=== PATIENT | male | born 1950 | race Asian ===

== ENCOUNTER 2016-06-09 14:22 | Outpatient (CLI) | payer MEDICAID | END 2016-06-09 14:23 | disposition home or self-care (01) | DX: J44.9 Chronic obstructive pulmonary disease, unspecified (principal); J84.10 Pulmonary fibrosis, unspecified ==

== ENCOUNTER 2019-07-16 19:29 | Outpatient (CLI) | payer MEDICARE, OTHER | END 2019-07-16 19:30 | disposition critical access hospital (66) | LOC: EMS 19:29 | PROVIDERS: ATTEND Surgery | DX: R41.82 Altered mental status, unspecified (principal); R06.89 Other abnormalities of breathing | CPT/HCPCS: A0425; A0427 ==

== ENCOUNTER 2019-07-16 19:51 | Emergency (ER) | payer MEDICAID, MEDICARE, OTHER ==
--- NOTE | 2019-07-16 20:19 | ED Physician Documentation ---
History of Present Illness - Stated complaint Stated Complaint: OD - Chief complaint Chief Complaint: Neuro - History obtained from History obtained from: Patient, EMS - History of Present Illness Timing: Today Pain level max: 0 Pain level now: 0 - Additonal information Additional information: 68-year-old male was found unresponsive today. He was given Narcan 2 mg IV, awoke and then given another 2 mg IV 20 minutes later. He states that he bought OxyContin off the street, states it was a 30 mg pill and he took one third of it. He states he was not trying to kill himself. He states he used marijuana today as well. Denies any other drug use. Denies any medications at home. Nothing makes it better or worse. Review of Systems Ten Systems: 10 systems reviewed and negative Constitutional: denies: Fever, Chills Throat: denies: Sore throat Respiratory: denies: Cough GI: denies: Nausea, Vomiting, Diarrhea Skin: denies: Rash Musculoskeletal: denies: Neck pain, Back pain Neurologic: denies: Generalized weakness, Focal weakness, Numbness, Confused, Altered mental status, Headache PD PAST MEDICAL HISTORY - Past Medical History Past Medical History: No - Past Surgical History Past Surgical History: No - Present Medications Home Medications: Ambulatory Orders Medication Instructions Recorded Confirmed No Known Home Medications 07/16/19 07/16/19 - Allergies Allergies/Adverse Reactions: Allergies Allergy/AdvReac Type Severity Reaction Status Date / Time No Known Drug Allergies Allergy Verified 07/16/19 20:00 - Living Situation Living Arrangement: reports: At home - Social History Does the pt smoke?: Yes Does the pt drink ETOH?: Yes Does the pt have substance abuse?: Yes Substance Use and Type: Marijuana, Prescription Pills - Family History Family history: reports: Non contributory PD ED PE NORMAL - Vitals Vital signs reviewed: Yes - General General: Alert and oriented X 3, No acute distress, Other (Thin male, appears significantly older than stated age.) - HEENT HEENT: Atraumatic, PERRL, Pharynx benign, Other (Dry lips) - Neck Neck: Supple, no meningeal sign - Cardiac Cardiac: RRR - Respiratory Respiratory: No respiratory distress, Clear bilaterally - Abdomen Abdomen: Soft, Non tender, Non distended - Derm Derm: Warm and dry - Extremities Extremities: No edema, No calf tenderness / cord - Neuro Neuro: Alert and oriented X 3 Results - Vitals Vitals: Vital Signs - 24 hr 07/16/19 07/16/19 07/16/19 19:53 20:00 21:30 Temperature 36.5 C Heart Rate 89 78 93 Respiratory 26 H 23 20 Rate Blood Pressure 172/105 H 107/72 130/94 H O2 Saturation 90 L 91 L 91 L Oxygen O2 Source Room air - EKG (time done) 2006 Rate: Rate (enter#) (74) Rhythm: NSR [place]: Normal Intervals: Normal MI QRS: Normal Ischemia: Normal ST segments - Labs Labs: Laboratory Tests 07/16/19 07/16/19 07/16/19 20:20 20:20 20:43 WBC 15.6 H RBC 4.71 Hgb 15.6 Hct 46.5 MCV 98.7 H MCH 33.1 H MCHC 33.5 RDW 13.1 Plt Count 159 MPV 10.0 Neut # (Auto) 13.2 H Lymph # (Auto) 1.[address] [place] # (Auto) 0.8 Eos # (Auto) 0.2 Baso # (Auto) 0.2 H Absolute Nucleated RBC 0.00 Nucleated RBC % 0.0 Sodium 137 Potassium 3.7 Chloride 107 Carbon Dioxide 21 Anion Gap 9.0 BUN 10 Creatinine 0.9 Estimated GFR (MDRD) 84 L Glucose 200 H Calcium 8.5 Total Bilirubin 0.8 AST 29 ALT 20 Alkaline Phosphatase 80 Total Protein 6.9 Albumin 3.6 Globulin 3.3 Albumin/Globulin Ratio 1.1 Lipase 20 L Urine Color YELLOW Urine Clarity CLEAR Urine pH 6.5 Ur Specific [place] 1.020 Urine Protein TRACE Urine Glucose (UA) NEGATIVE Urine Ketones NEGATIVE Urine Occult Blood TRACE-INTA Urine Nitrite NEGATIVE Urine Bilirubin NEGATIVE Urine Urobilinogen 0.2 (NORMAL) Ur Leukocyte Esterase NEGATIVE Ur Microscopic Review NOT INDICATED Urine Culture Comments NOT INDICATED Salicylates < 6.0 Urine Opiates Screen NEGATIVE Ur Oxycodone Screen NEGATIVE Urine Methadone Screen NEGATIVE Ur Propoxyphene Screen NEGATIVE Acetaminophen < 10 L Ur Barbiturates Screen NEGATIVE Ur Tricyclics Screen NEGATIVE Ur Phencyclidine Scrn NEGATIVE Ur Amphetamine Screen NEGATIVE U Methamphetamines Scrn NEGATIVE U Benzodiazepines Scrn NEGATIVE Urine Cocaine Screen NEGATIVE U Cannabinoids Screen POSITIVE H Ethyl Alcohol < 5.0 PD MEDICAL DECISION MAKING - ED course Complexity details: considered differential, d/w patient ED course: Patient with an accidental opiate overdose today. Likely that he purchased a pill containing fentanyl. He had no further recurrences of somnolence or respiratory difficulty in the emergency department. He denies being suicidal or homicidal. Does not want to go to drug rehab. Patient counseled regarding signs and symptoms for which I believe and urgent re-evaluation would be necessary. Patient with good understanding of and agreement to plan and is comfortable going home at this time This document was made in part using voice recognition software. While efforts are made to proofread this document, sound alike and grammatical errors may occur. Departure - Departure Disposition: 01 Home, Self Care Clinical Impression: Opiate overdose Qualifiers: Encounter type: initial encounter Injury intent: accidental or unintentional Qualified Code(s): T40.601A - Poisoning by unspecified narcotics, accidental (unintentional), initial encounter COPD (chronic obstructive pulmonary disease) Qualifiers: COPD type: unspecified COPD Qualified Code(s): J44.9 - Chronic obstructive pulmonary disease, unspecified Condition: Good Instructions: ED Overdose Accidental Follow-Up: your,doctor in 1 week [Other] Comments: Return if you worsen. You should refrain from buying drugs on the street and taking them. The drug that you took was likely fentanyl. It took 2 doses of naloxone to revive you. You should also consider going to drug rehab. Crisis Line and is available to talk to someone Http://[email or web address] is also available to chat with someone online if you prefer. There are also many resources on this website and apps for your phone to help with your mental health You can also text the word START to [phone] to chat with someome via text. Discharge Date/Time: 07/16/19 21:58
[2019-07-16 20:24] LABS: BASOPHILS # (AUTO) 0.2 10^3/uL (0.0-0.1); BASOPHILS % (AUTO) 1.1 %; EOSINOPHILS # (AUTO) 0.2 10^3/uL (0.0-0.7); HGB - HEMOGLOBIN 15.6 g/dL (14.0-18.0); LYMPHOCYTES # (AUTO) 1.1 10^3/uL (1.5-3.5); LYMPHOCYTES % (AUTO) 7.2 %; MEAN CORPUSCULAR HEMOGLOBIN 33.1 pg (27.0-31.0); MEAN CORPUSCULAR HGB CONC 33.5 g/dL (32.0-36.0); MEAN CORPUSCULAR VOLUME 98.7 fL (80.0-94.0); MONOCYTES # (AUTO) 0.8 10^3/uL (0.0-1.0); MONOCYTES % (AUTO) 5.2 %; NEUTROPHILS # (AUTO) 13.2 10^3/uL (1.5-6.6); NEUTROPHILS % (AUTO) 84.7 %; PLT - PLATELET COUNT 159 10^3/uL (130-450); RED BLOOD COUNT 4.71 10^6/uL (4.70-6.10); RED CELL DISTRIBUTION WIDTH 13.1 % (12.0-15.0); WHITE BLOOD COUNT 15.6 x10^3/uL (4.8-10.8)
[2019-07-16 20:37] LABS: ACETAMINOPHEN < 10 ug/mL (10-30); ALBUMIN 3.6 g/dL (3.2-5.5); ALBUMIN/GLOBULIN RATIO 1.1 (1.0-2.2); ALKALINE PHOSPHATASE 80 IU/L (42-121); ALT ALANINE AMINOTRANSFERASE 20 IU/L (10-60); AST ASPARTATE AMINOTRANSFERASE 29 IU/L (10-42); BILIRUBIN,TOTAL 0.8 mg/dL (0.2-1.0); BUN - BLOOD UREA NITROGEN 10 mg/dL (6-20); CALCIUM 8.5 mg/dL (8.5-10.3); CARBON DIOXIDE - CO2 21 mmol/L (21-32); CHLORIDE 107 mmol/L (101-111); CREATININE 0.9 mg/dL (0.6-1.2); GLUCOSE 200 mg/dL (70-100); LIPASE 20 U/L (22-51); SALICYLATE < 6.0 mg/dL; SODIUM 137 mmol/L (135-145); TOTAL PROTEIN 6.9 g/dL (6.7-8.2)
[2019-07-16 20:48] LABS: MUDS CUTOFF CONCENTRATIONS CUTOFF CONC BELOW:
[2019-07-16 20:49] LABS: BILIRUBIN,URINE NEGATIVE (NEGATIVE); GLUCOSE, URINE (UA) NEGATIVE (NEGATIVE); KETONES,URINE (UA) NEGATIVE (NEGATIVE); LEUKOCYTE ESTERASE, URINE NEGATIVE (NEGATIVE); NITRITE,URINE NEGATIVE (NEGATIVE); OCCULT BLOOD,URINE TRACE-INTA (NEGATIVE); PH,URINE 6.5 PH (5.0-7.5); PROTEIN,URINE TRACE mg/dL (NEGATIVE); UROBILINOGEN,URINE 0.2 (NORMAL) E.U./dL (NORMAL)
[2019-07-16 20:50] LABS: CLARITY,URINE CLEAR (CLEAR)
[2019-07-16 21:01] LABS: AMPHETAMINE SCREEN,URINE NEGATIVE (NEGATIVE); BENZODIAZEPINES SCREEN, URINE NEGATIVE (NEGATIVE); COCAINE SCREEN URINE NEGATIVE (NEGATIVE); METHADONE SCREEN, URINE NEGATIVE (NEGATIVE); METHAMPHETAMINES SCREEN, URINE NEGATIVE (NEGATIVE); OPIATE SCREEN, URINE NEGATIVE (NEGATIVE); OXYCODONE SCREEN, URINE NEGATIVE (NEGATIVE); PROPOXYPHENE SCREEN, URINE NEGATIVE (NEGATIVE); TRICYCLIC ANTIDEPRESSANT,URINE NEGATIVE (NEGATIVE)
[2019-07-16 21:41] VITALS: BP 130/94
== END 2019-07-16 21:58 | disposition home or self-care (01) ==
LOC: ED 19:51
DX: T40.601A Poisoning by unspecified narcotics, accidental (unintentional), initial encounter (principal); R40.20 Unspecified coma; Y92.9 Unspecified place or not applicable; J44.9 Chronic obstructive pulmonary disease, unspecified; F17.200 Nicotine dependence, unspecified, uncomplicated; Z72.89 Other problems related to lifestyle
CPT/HCPCS: 36415; 80053; 80306; 80307; 80320; 80329; 81001; 81003; 83690; 85025; 87086; 93005; 99283; 99284

== ENCOUNTER 2019-12-05 10:00 | Outpatient (CLI) | payer MEDICARE | END 2019-12-05 10:01 | disposition critical access hospital (66) | LOC: EMS 10:00 | PROVIDERS: ATTEND Surgery | DX: R41.82 Altered mental status, unspecified (principal); R47.81 Slurred speech | CPT/HCPCS: A0425; A0427 ==

== ENCOUNTER 2019-12-05 10:19 | Emergency (ER) | payer MEDICARE ==
--- NOTE | 2019-12-05 10:34 | ED Physician Documentation ---
PD HPI ALTERED MENTAL STATUS - Stated complaint Stated Complaint: OD - History obtained from History obtained from: Patient, Family, EMS (Report from EMS is the patient had an onset of diminished level of consciousness this morning. His told EMS she believes he had gotten some illicit narcotics and took them. He had had a similar episode several months ago. They found him with diminished alertness.) - History of Present Illness Timing - onset: Today Timing - duration: Hours (1) Timing - details: Abrupt onset Quality / character: Less responsive Associated symptoms: No: Fever, Headache Contributing factors: Substance abuse (reportedly had taken some illicit opiate.). No: Anticoagulated Basline status: Alert and oriented X 3, Ambulatory Treatment S[employer]IOR WE[employer] ENG[employer]ER: Accucheck, Narcan (He did become more promptly awake and alert after Narcan given IV. However he also started developing some nausea agitation and fidgeting.) Similar symptoms before: Diagnosis (ER records show a similar episode several months ago related to illicit narcotics as well.) Recently seen: Not recently seen Review of Systems Unable to obtain: AMS (some info from him once more alert and calmed.) Constitutional: denies: Fever Cardiac: denies: Chest pain / pressure Respiratory: denies: Cough GI: denies: Abdominal Pain, Vomiting, Diarrhea Neurologic: reports: Generalized weakness Endocrine: reports: Weight loss PD PAST MEDICAL HISTORY - Past Medical History Cardiovascular: None Respiratory: None Endocrine/Autoimmune: None - Past Surgical History Past Surgical History: No - Present Medications Home Medications: Ambulatory Orders Medication Instructions Recorded Confirmed No Known Home Medications 07/16/19 07/16/19 - Allergies Allergies/Adverse Reactions: Allergies Allergy/AdvReac Type Severity Reaction Status Date / Time No Known Drug Allergies Allergy Verified 12/05/19 10:36 - Living Situation Living Situation: reports: With spouse/s.o. Living Arrangement: reports: At home - Social History Does the pt smoke?: Yes Does the pt drink ETOH?: Yes Does the pt have substance abuse?: Yes - Family History Family history: reports: Non contributory PD ED PE NORMAL - Vitals Vital signs reviewed: Yes - General General: Alert and oriented X 3. No: Well developed/nourished (He is thin and frail-appearing. Unkempt mao and hair.) - HEENT HEENT: Pharynx benign - Neck Neck: Supple, no meningeal sign, No adenopathy - Cardiac Cardiac: RRR, No murmur - Respiratory Respiratory: Clear bilaterally - Abdomen Abdomen: Soft, Non tender - Back Back: No CVA TTP - Derm Derm: Normal color, Warm and dry, Other (right gluteal with redness and mild skin breakdown, decubitus level 2. ) - Neuro Neuro: Alert and oriented X 3 (Somewhat hard of hearing but is able to tell us his name month and date of . He is generally fidgety and appears nauseated. Medics state this was new after getting the Narcan but he is more alert.), No motor deficit, Normal speech Eye Opening: Spontaneous Motor: Obeys Commands - Psych Psych: No: Normal mood (anxious) Results - Vitals Vitals: Vital Signs - 24 hr 12/05/19 12/05/19 12/05/19 10:27 10:36 13:03 Temperature 36.5 C Heart Rate 101 H 86 88 Respiratory 30 H 16 21 Rate Blood Pressure 174/107 H 115/86 H 131/92 H O2 Saturation 98 96 95 12/05/19 15:25 Temperature Heart Rate 90 Respiratory Rate Blood Pressure 151/89 H O2 Saturation 93 Oxygen O2 Source Room air - Labs Labs: Laboratory Tests 12/05/19 12/05/19 12/05/19 10:54 10:54 11:40 WBC 24.0 H RBC 4.99 Hgb 16.5 Hct 46.7 MCV 93.6 MCH 33.1 H MCHC 35.3 RDW 13.0 Plt Count 244 MPV 9.6 Neut # (Auto) 20.0 H Lymph # (Auto) 2.1 [place] # (Auto) 1.5 H Eos # (Auto) 0.0 Baso # (Auto) 0.1 Absolute Nucleated RBC 0.00 Nucleated RBC % 0.0 Manual Slide Review Indicated WBC Morphology Platelet Estimate NORMAL (130-450,000) Platelet Morphology NORMAL APPEARANCE RBC Morph Micro Appear NORMAL APPEARANCE Sodium 131 L Potassium 3.7 Chloride 92 L Carbon Dioxide 21 Anion Gap 18.0 H BUN 16 Creatinine 0.9 Estimated GFR (MDRD) 84 L Glucose 141 H Calcium 9.2 Magnesium 1.8 Total Bilirubin 1.1 H AST 24 ALT 13 Alkaline Phosphatase 92 Total Protein 7.5 Albumin 3.6 Globulin 3.9 Albumin/Globulin Ratio 0.9 L Lipase 17 L Urine Color YELLOW Urine Clarity CLEAR Urine pH 7.0 Ur Specific [place] 1.010 Urine Protein NEGATIVE Urine Glucose (UA) NEGATIVE Urine Ketones NEGATIVE Urine Occult Blood NEGATIVE Urine Nitrite NEGATIVE Urine Bilirubin NEGATIVE Urine Urobilinogen 0.2 (NORMAL) Ur Leukocyte Esterase NEGATIVE Ur Microscopic Review NOT INDICATED Urine Culture Comments NOT INDICATED Salicylates < 6.0 Urine Opiates Screen NEGATIVE Ur Oxycodone Screen NEGATIVE Urine Methadone Screen NEGATIVE Ur Propoxyphene Screen NEGATIVE Acetaminophen < 10 L Ur Barbiturates Screen NEGATIVE Ur Tricyclics Screen NEGATIVE Ur Phencyclidine Scrn NEGATIVE Ur Amphetamine Screen NEGATIVE U Methamphetamines Scrn NEGATIVE U Benzodiazepines Scrn NEGATIVE Urine Cocaine Screen NEGATIVE U Cannabinoids Screen POSITIVE H Ethyl Alcohol < 5.0 - Rads (name of study) chest xray Radiology: Prelim report reviewed (Chronic lung changes with hyperinflation. No acute infiltrates or abnormalities), See rad report PD MEDICAL DECISION MAKING - ED course Complexity details: re-evaluated patient (He is calmer and laying comfortably. Eye opening to verbal. He is oriented and is not anxious at this time. He has been in the ER now 2 to 3 hours without any worsening of alertness which should have out lasted the Narcan. I do not anticipate a worsening of mentation at this point), considered differential (He is more alert after Narcan on route consistent with the history of likely illicit opiate use. He is having withdrawal-kierra type symptoms so given Ativan IV.), d/w patient ED course: He was having a little bit of gait problems and general weakness when trying to get up out of bed though he was able to ambulate in the room. Nurses were worried about his general frailty and self-care. There was a mild pressure sore on the low gluteal area. Request was for social work to consult and see what type of home assistance we can provide. Departure - Departure Clinical Impression: Generalized weakness, Frailty Altered mental status Qualifiers: Altered mental status type: somnolence Qualified Code(s): R40.0 - Somnolence Opiate or related narcotic overdose Qualifiers: Encounter type: initial encounter Injury intent: accidental or unintentional Qualified Code(s): T40.601A - Poisoning by unspecified narcotics, accidental (unintentional), initial encounter Condition: Stable Record reviewed to determine appropriate education?: Yes Instructions: ED Overdose Accidental Comments: It seems your altered mentation was related to medication or drug effect presumably. He seemed more alert now. Avoid recreational drug use. Stay well- hydrated. Eat well.
[2019-12-05] MEDS ORDERED: LORazepam 2 MG/ML VIAL IVP STA (10:35)
[2019-12-05] MEDS ORDERED: SODIUM CHLORIDE 0.9% 1,000 ML IV STA ×2 (10:35→14:42)
--- NOTE | 2019-12-05 10:56 | XRAY Report ---
PROCEDURE: Chest 1 View X-Ray INDICATIONS: chest pain TECHNIQUE: One view of the chest was acquired. COMPARISON: FINDINGS: Surgical changes and devices: None. Lungs and pleura: No pleural effusions or pneumothorax. Lungs are abnormal with large lung volumes and flattening of the diaphragms, and interstitial prominence. The appearance is consistent with COPD and probable prior smoking history. Mediastinum: Mediastinal contours appear normal. Heart size is normal. Bones and chest wall: No suspicious bony lesions. Old left-sided posterior left rib fractures incide ntally noted. Overlying soft tissues appear unremarkable. IMPRESSION: A definite source of chest pain is not seen. What appears to represent COPD, interstitial prominence and presumed prior smoking history is present in this patient. Old left-sided mid chest rib fractures posteriorly incidentally noted. Reviewed by: Blake Ray MD on 12/05/2019 10:55 AM PDT Approved by: Blake Ray MD on 12/05/2019 10:55 AM PDT Station ID: [id number]
[2019-12-05 11:00] LABS: BASOPHILS # (AUTO) 0.1 10^3/uL (0.0-0.1); BASOPHILS % (AUTO) 0.4 %; HGB - HEMOGLOBIN 16.5 g/dL (14.0-18.0); LYMPHOCYTES # (AUTO) 2.1 10^3/uL (1.5-3.5); LYMPHOCYTES % (AUTO) 8.7 %; MEAN CORPUSCULAR HEMOGLOBIN 33.1 pg (27.0-31.0); MEAN CORPUSCULAR HGB CONC 35.3 g/dL (32.0-36.0); MEAN CORPUSCULAR VOLUME 93.6 fL (80.0-94.0); MEAN PLATELET VOLUME 9.6 fL (7.4-11.4); MONOCYTES # (AUTO) 1.5 10^3/uL (0.0-1.0); MONOCYTES % (AUTO) 6.4 %; NEUTROPHILS % (AUTO) 83.4 %; PLT - PLATELET COUNT 244 10^3/uL (130-450); RED BLOOD COUNT 4.99 10^6/uL (4.70-6.10)
[2019-12-05 11:14] LABS: ACETAMINOPHEN < 10 ug/mL (10-30); ALBUMIN 3.6 g/dL (3.2-5.5); ALBUMIN/GLOBULIN RATIO 0.9 (1.0-2.2); ALKALINE PHOSPHATASE 92 IU/L (42-121); ALT ALANINE AMINOTRANSFERASE 13 IU/L (10-60); AST ASPARTATE AMINOTRANSFERASE 24 IU/L (10-42); BILIRUBIN,TOTAL 1.1 mg/dL (0.2-1.0); BUN - BLOOD UREA NITROGEN 16 mg/dL (6-20); CALCIUM 9.2 mg/dL (8.5-10.3); CARBON DIOXIDE - CO2 21 mmol/L (21-32); CHLORIDE 92 mmol/L (101-111); CREATININE 0.9 mg/dL (0.6-1.2); GLUCOSE 141 mg/dL (70-100); LIPASE 17 U/L (22-51); MAGNESIUM 1.8 mg/dL (1.7-2.8); SALICYLATE < 6.0 mg/dL; SODIUM 131 mmol/L (135-145); TOTAL PROTEIN 7.5 g/dL (6.7-8.2)
[2019-12-05 11:39] LABS: PLATELET ESTIMATE, MANUAL NORMAL (130-450,000) (NORMAL); PLATELET MORPHOLOGY NORMAL APPEARANCE (NORMAL); RBC MORPHOLOGY (MULTIPLE) NORMAL APPEARANCE (NORMAL)
[2019-12-05 11:59] LABS: MUDS CUTOFF CONCENTRATIONS CUTOFF CONC BELOW:
[2019-12-05 12:02] LABS: BILIRUBIN,URINE NEGATIVE (NEGATIVE); GLUCOSE, URINE (UA) NEGATIVE (NEGATIVE); KETONES,URINE (UA) NEGATIVE (NEGATIVE); LEUKOCYTE ESTERASE, URINE NEGATIVE (NEGATIVE); NITRITE,URINE NEGATIVE (NEGATIVE); OCCULT BLOOD,URINE NEGATIVE (NEGATIVE); PROTEIN,URINE NEGATIVE (NEGATIVE); UROBILINOGEN,URINE 0.2 (NORMAL) E.U./dL (NORMAL)
[2019-12-05 12:03] LABS: CLARITY,URINE CLEAR (CLEAR)
[2019-12-05 12:11] LABS: AMPHETAMINE SCREEN,URINE NEGATIVE (NEGATIVE); BENZODIAZEPINES SCREEN, URINE NEGATIVE (NEGATIVE); COCAINE SCREEN URINE NEGATIVE (NEGATIVE); METHADONE SCREEN, URINE NEGATIVE (NEGATIVE); METHAMPHETAMINES SCREEN, URINE NEGATIVE (NEGATIVE); OPIATE SCREEN, URINE NEGATIVE (NEGATIVE); OXYCODONE SCREEN, URINE NEGATIVE (NEGATIVE); PROPOXYPHENE SCREEN, URINE NEGATIVE (NEGATIVE); TRICYCLIC ANTIDEPRESSANT,URINE NEGATIVE (NEGATIVE)
[2019-12-05 19:38] VITALS: BP 150/87
== END 2019-12-05 21:05 | disposition home or self-care (01) ==
LOC: EDUNIT# → ED 10:19
DX: T40.2X1A Poisoning by other opioids, accidental (unintentional), initial encounter (principal); R40.0 Somnolence; F11.10 Opioid abuse, uncomplicated; Y92.009 Unspecified place in unspecified non-institutional (private) residence as the place of occurrence of the external cause; L89.312 Pressure ulcer of right buttock, stage 2; R53.1 Weakness; R11.0 Nausea
CPT/HCPCS: 36415; 71045; 80053; 81003; 83690; 83735; 85025; 96361; 96374; 99284; J2060; 80306; 80307; 80320; 80329; 81001; 87086

== ENCOUNTER 2019-12-09 20:16 | Outpatient (CLI) | payer MEDICARE | END 2019-12-09 20:17 | disposition critical access hospital (66) | LOC: EMS 20:16 | PROVIDERS: ATTEND Surgery | DX: R47.81 Slurred speech (principal); R53.1 Weakness; R29.810 Facial weakness | CPT/HCPCS: A0425; A0427 ==

== ENCOUNTER 2019-12-09 20:36 | Emergency (ER) | payer MEDICARE ==
--- NOTE | 2019-12-09 20:40 | ED Physician Documentation ---
PD HPI FOCAL NEURO - Stated complaint Stated Complaint: LEFT SIDE WEAKNESS, NON VERBAL - History obtained from History obtained from: Patient, Family, EMS - History of Present Illness Timing - onset: Today (at 6:30 pm (significant other had been with him through the afternoon, so not any period of not being seen). does say he had some general weakness and slumped while walking this morning but did not have the focal weakness at that time.) Timing - duration: Hours (2) Timing - details: Abrupt onset (The current one-sided weakness and trouble speaking is abrupt this evening. He has been having some general weakness and perhaps slight confusion earlier in the day.) Severity of deficit: Severe Weakness: Face, Arm, Leg, Left Associated symptoms: No: Headache, Nausea / vomiting, Syncope, Head injury Contributing factors: negative: Anticoagulated, Vascular dz, Atrial fibrillation Baseline status: positive: A&OX3, ambulatory, indep Similar symptoms before: Has not had sx before Recently seen: Emergency Dept (Seen 4 days ago for decreased alertness after reportedly taking nonprescribed opiate. He was given Narcan by EMS and improved and remained alert in the ER. He did not have any focal deficits no trouble speaking on that visit (actually seen by me on that visit).) Review of Systems Constitutional: denies: Fever Nose: denies: Congestion Throat: denies: Sore throat Cardiac: denies: Chest pain / pressure Respiratory: denies: Cough GI: denies: Abdominal Pain, Vomiting Skin: denies: Rash Neurologic: reports: Focal weakness. denies: Headache, Head injury Immunocompromised: denies: Immunocompromised PD PAST MEDICAL HISTORY - Past Medical History Cardiovascular: None Respiratory: None Endocrine/Autoimmune: None - Past Surgical History Past Surgical History: No - Present Medications Home Medications: Ambulatory Orders Medication Instructions Recorded Confirmed No Known Home Medications 07/16/19 07/16/19 - Allergies Allergies/Adverse Reactions: Allergies Allergy/AdvReac Type Severity Reaction Status Date / Time No Known Drug Allergies Allergy Verified 12/05/19 10:36 - Social History Does the pt smoke?: Yes Does the pt drink ETOH?: Yes Does the pt have substance abuse?: Yes PD ED PE NORMAL - Vitals Vital signs reviewed: Yes - General General: Well developed/nourished, Other (He is appearing anxious and frustrated at his weakness. He is able to answer questions though the articulation is off. We have not attempted to have him swallow) - HEENT HEENT: Pharynx benign - Neck Neck: Supple, no meningeal sign, No adenopathy, No bruit - Cardiac Cardiac: RRR, Other (1/6 murmur systolic at left chest without radiation. ) - Respiratory Respiratory: Clear bilaterally - Abdomen Abdomen: Soft, Non tender, Non distended - Derm Derm: Normal color, Warm and dry - Extremities Extremities: No tenderness to palpate, No edema, No calf tenderness / cord - Neuro Neuro: Alert and oriented X 3. No: Normal speech Eye Opening: Spontaneous Motor: Obeys Commands Verbal: Oriented GCS Score: 15 NIHSS - Level of Consciousness Level of consciousness: (0) Alert, Keenly responsive LOC Questions: (1) Answers one Q correctly (nameDOB but not month) LOC Commands: (0) Performs both correctly - Gaze Best Gaze: (0) Normal - Visual Visual: (0) No loss - Facial Palsy Facial Palsy: (3) Complete paralysis - Motor Arms (both separate) Motor Arm (right): (0) No drift Motor Arm (left): (4) No movement - Motor Legs (both separate) Motor Leg (right): (0) No drift Motor Leg (left): (4) No movement - Limb Ataxia Limb Ataxia: (0) Absent - Sensory Sensory: (1) [id number] loss - Best Language Best Language: (0) No aphasia - Dysarthria Dysarthria: (2) Severe dysarthria - Extinction and Inattention (formally neg Extinction and inattention: (0) No abnormality - Total Score/Results Total Score/Result: 15 Results - Vitals Vitals: Vital Signs - 24 hr 12/09/19 12/09/19 12/09/19 20:35 21:16 21:56 Temperature 37.1 C Heart Rate 85 89 70 Respiratory 20 24 22 Rate Blood Pressure 164/110 H 185/105 H 172/118 H O2 Saturation 92 93 94 12/09/19 12/09/19 12/09/19 21:57 21:59 22:00 Temperature Heart Rate 99 76 71 Respiratory 20 20 26 H Rate Blood Pressure 162/111 H 190/122 H 171/118 H O2 Saturation 97 94 97 12/09/19 12/09/19 12/09/19 22:04 22:42 23:29 Temperature Heart Rate 63 74 76 Respiratory 24 24 25 H Rate Blood Pressure 147/95 H 151/106 H 168/111 H O2 Saturation 97 97 95 Oxygen O2 Source Room air - Labs Labs: Laboratory Tests 12/09/19 12/09/19 12/09/19 21:00 21:00 21:00 WBC 19.8 H RBC 4.90 Hgb 15.7 Hct 46.4 MCV 94.7 H MCH 32.0 H MCHC 33.8 RDW 12.8 Plt Count 196 MPV 10.3 Neut # (Auto) 16.8 H Lymph # (Auto) 1.5 [place] # (Auto) 1.3 H Eos # (Auto) 0.0 Baso # (Auto) 0.1 Absolute Nucleated RBC 0.00 Nucleated RBC % 0.0 ESR 3 PT INR APTT Sodium 129 L Potassium 3.7 Chloride 92 L Carbon Dioxide 28 Anion Gap 9.0 BUN 12 Creatinine 0.7 Estimated GFR (MDRD) 112 Glucose 162 H Calcium 8.1 L Magnesium 1.7 Total Bilirubin 1.4 H AST 22 ALT 14 Alkaline Phosphatase 79 Total Protein 6.5 L Albumin 3.2 Globulin 3.3 Albumin/Globulin Ratio 1.0 Lipase 19 L 12/09/19 21:00 WBC RBC Hgb Hct MCV MCH MCHC RDW Plt Count MPV Neut # (Auto) Lymph # (Auto) [place] # (Auto) Eos # (Auto) Baso # (Auto) Absolute Nucleated RBC Nucleated RBC % ESR PT 15.8 H INR 1.4 H APTT 28.6 Sodium Potassium Chloride Carbon Dioxide Anion Gap BUN Creatinine Estimated GFR (MDRD) Glucose Calcium Magnesium Total Bilirubin AST ALT Alkaline Phosphatase Total Protein Albumin Globulin Albumin/Globulin Ratio Lipase - Rads (name of study) head stroke protocol Radiology: Discussed with rads (multiple areas of subacute to chronic small infarcts. ), See rad report PD MEDICAL DECISION MAKING - ED course Complexity details: considered differential, d/w identity management consultant (Talked with stroke neurology at [facility] who talked with the radiologist from [facility] radiology and also the patient's . Given the concern for subacute findings on the CT and some onset of weakness earlier in the day and trouble walking, the feeling was not a TPA candidate and treated for CVA), other (Talked with the hospitalist at [facility] with the history and the reason for transfer and she was accepting of the transfer.) ED course: Talked with our hospitalist here Dr. Valladares but the issue was support and availability of support for evaluation of the stroke. Our facility did not have MRI nor OT PT available until Thursday and no echocardiogram until Thursday. This would be inappropriate delay and further work-up and so it necessitated transfer to another facility Departure - Departure Disposition: 02 Transfer Acute Care Hosp Clinical Impression: Acute left-sided weakness Cerebrovascular accident (CVA) Qualifiers: CVA mechanism: unspecified Qualified Code(s): I63.9 - Cerebral infarction, unspecified Condition: Stable Record reviewed to determine appropriate education?: Yes
[2019-12-09] MEDS ORDERED: SODIUM CHLORIDE 0.9% 1,000 ML IV STA (20:41)
--- NOTE | 2019-12-09 20:58 | CT Report ---
PROCEDURE: Head W/O Stroke Protocol INDICATIONS: acute left weakness and aphasia TECHNIQUE: Noncontrast 4.5 mm thick angled axial sections acquired from the foramen magnum to the vertex, with c oronal reformats. For radiation dose reduction, the following was used: automated exposure control, adjustment of mA and/or kV according to patient size. COMPARISON: FINDINGS: Image quality: Excellent. CSF spaces: Basal cisterns are patent. No extra-axial fluid collections. Ventricles are normal in size and shape. Brain: No midline shift. Moderate left and small right subacute versus chronic appearing bifrontal l obe infarcts. Small subacute versus chronic left anterior basal ganglia infarct. Small chronic versus subacute left anterior temporal lobe infarct. No intracranial masses or hemorrhage. [place]-white mable er interface is normal. Skull and face: Calvarium and visualized facial bones are intact, without suspicious lesions. Sinuses: Visualized sinuses and mastoids are clear. IMPRESSION: 1. No acute intracranial abnormality. 2. Subacute versus chronic bilateral infarcts as described above. 3. Findings discussed with Dr. Mahmood on 12.09.19 at 2055 hours. This study fulfills neurological imaging criteria for inclusion or exclusion of acute stroke therapie s based on available published neurological imaging guidelines. Reviewed by: Marie Mohamud MD on 12/09/2019 8:57 PM PDT Approved by: Marie Mohamud MD on 12/09/2019 8:57 PM PDT Station ID: [id number]
[2019-12-09] MEDS ORDERED: IOVERSOL 320 100 ML VIAL IVP ONE ×2 (21:02→21:09)
[2019-12-09 21:05] LABS: BASOPHILS % (AUTO) 0.3 %; RED CELL DISTRIBUTION WIDTH 12.8 % (12.0-15.0)
[2019-12-09 21:08] LABS: BASOPHILS # (AUTO) 0.1 10^3/uL (0.0-0.1); EOSINOPHILS % (AUTO) 0.1 %; HGB - HEMOGLOBIN 15.7 g/dL (14.0-18.0); LYMPHOCYTES # (AUTO) 1.5 10^3/uL (1.5-3.5); LYMPHOCYTES % (AUTO) 7.5 %; MEAN CORPUSCULAR HGB CONC 33.8 g/dL (32.0-36.0); MEAN CORPUSCULAR VOLUME 94.7 fL (80.0-94.0); MEAN PLATELET VOLUME 10.3 fL (7.4-11.4); MONOCYTES # (AUTO) 1.3 10^3/uL (0.0-1.0); MONOCYTES % (AUTO) 6.4 %; NEUTROPHILS # (AUTO) 16.8 10^3/uL (1.5-6.6); NEUTROPHILS % (AUTO) 84.7 %; PLT - PLATELET COUNT 196 10^3/uL (130-450); WHITE BLOOD COUNT 19.8 x10^3/uL (4.8-10.8)
[2019-12-09 21:09] LABS: INR 1.4 (0.8-1.2); PT - PROTHROMBIN TIME 15.8 secs (9.9-12.6)
--- NOTE | 2019-12-09 21:09 | CT Report ---
PROCEDURE: ANGIO HEAD W/WO INDICATIONS: L sided facial droop CONTRAST: IV CONTRAST: Optiray 320 ml: 80 PO CONTRAST: *NO PO CONTRAST TECHNIQUE: Precontrast 4.5 mm thick angled axial sections acquired from the foramen magnum to the vertex. Afte r the administration of intravenous contrast, 1 mm thick sections acquired through the [place] of [place] is. Postcontrast 4.5 mm thick sections then re-acquired from the foramen magnum to the vertex. 3-di mensional iccuzlf-mxrvyhivi-iyhyfieihy (MIP) and/or volume rendering reformats were acquired of the c entral intracranial vasculature. For radiation dose reduction, the following was used: automated ex posure control, adjustment of mA and/or kV according to patient size. COMPARISON: Head CT examination dated 12.09.19 FINDINGS: Image quality: Excellent. Anterior circulation: Intracranial internal carotid arteries are normal in size and flow. The flow within the paired anterior cerebral arteries is normal and symmetric. The flow within the middle cer ebral arteries is normal and symmetric. The anterior communicating artery is seen. No aneurysms are seen. Posterior circulation: Visualized portions of the vertebral arteries demonstrate normal caliber, and join to form a normal appearing basilar artery. Flow within the posterior cerebral arteries is norm al and symmetric. No aneurysms are seen. CSF spaces: Ventricles are normal in size and shape. Basal cisterns are patent. No extra-axial flu id collections. Brain: No midline shift. Moderate left and small right subacute versus chronic bifrontal infarcts. S mall chronic versus subacute left anterior temporal lobe infarct. No intracranial bleeds or masses. [place]-white matter interface appears intact. Skull and face: Calvarium and facial bones appear intact, without suspicious lesions. Sinuses: Visualized sinuses and mastoids are clear. IMPRESSION: 1. No acute process involving the arterial vasculature of the head. 2. Bilateral subacute versus chronic infarct. Reviewed by: Marie Mohamud MD on 12/09/2019 9:08 PM PDT Approved by: Marie Mohamud MD on 12/09/2019 9:08 PM PDT Station ID: [id number]
[2019-12-09] MEDS ORDERED: MORPHINE 2 MG/ML CARPUJECT IVP STA (21:10)
--- NOTE | 2019-12-09 21:11 | CT Report ---
PROCEDURE: ANGIO NECK W INDICATIONS: L sided facial droop, L neck pain CONTRAST: IV CONTRAST: Optiray 320 ml: 80 PO CONTRAST: *NO PO CONTRAST TECHNIQUE: After the administration of intravenous contrast, 1.5 mm axial sections acquired from the aortic arch to the [place] of [place]. Coronal 3-D maximum intensity projection (MIP) and/or volume rendering ref ormats were then performed. For radiation dose reduction, the following was used: automated exposur e control, adjustment of mA and/or kV according to patient size. COMPARISON: None. FINDINGS: Image quality: Excellent. Carotid system: The great vessels demonstrate a conventional anatomy as they arise from the aortic a rc. The origins of the common carotid arteries appear patent. The common carotid arteries demonstr ate normal calibers and courses. The bifurcation regions appear normal bilaterally. The internal ca rotid arteries demonstrate normal caliber and course. Posterior circulation: The origins of the vertebral arteries appear patent. The more superior porti ons of the vertebral arteries demonstrate normal course and caliber. They join to form a normal appe aring basilar artery. Soft tissues: Visualized neck soft tissues demonstrate no suspicious abnormalities. The thyroid gla nd is normal in size. Severe bilateral upper lobe emphysema. Bones: No suspicious bony lesions. Visualized cervical spine appears normally aligned. IMPRESSION: No acute process involving the arterial tree of the head and neck. 2. No significant internal carotid artery nor vertebral artery stenosis. The estimate of stenosis included in the report of the imaging study was calculated using the NASCET method Reviewed by: Marie Mohamud MD on 12/09/2019 9:10 PM PDT Approved by: Marie Mohamud MD on 12/09/2019 9:10 PM PDT Station ID: [id number]
[2019-12-09] MEDS ORDERED: LABETALOL 20 MG/4 ML SYRINGE IVP STA (21:13)
[2019-12-09 21:16] LABS: ALBUMIN 3.2 g/dL (3.2-5.5); BILIRUBIN,TOTAL 1.4 mg/dL (0.2-1.0); CALCIUM 8.1 mg/dL (8.5-10.3); CREATININE 0.7 mg/dL (0.6-1.2); MAGNESIUM 1.7 mg/dL (1.7-2.8); PARTIAL THROMBOPLASTIN TIME 28.6 secs (24.9-33.3); TOTAL PROTEIN 6.5 g/dL (6.7-8.2)
[2019-12-09] MEDS ORDERED: WATER FOR INJECTION STERILE IV STA (21:25)
[2019-12-09] MEDS ORDERED: ALTEPLASE IV STA (21:25)
[2019-12-09] MEDS ORDERED: ASPIRIN CHEW 81 MG TABLET PO STA (21:56)
[2019-12-09] MEDS ORDERED: ASPIRIN 300 MG SUPP PR STA (22:59)
[2019-12-09] MEDS ORDERED: LACTATED RINGERS 1,000 ML IV STA (22:59)
[2019-12-10] MEDS ORDERED: HYDROmorphone 1 MG/ML CARPUJECT IVP STA (00:33)
[2019-12-10] MEDS ORDERED: KETOROLAC 15 MG/ML VIAL IVP STA (00:33)
[2019-12-10 02:13] VITALS: BP 136/82
== END 2019-12-10 02:00 | disposition short-term general hospital (02) ==
LOC: EDUNIT# → ED 20:36
DX: I63.9 Cerebral infarction, unspecified (principal); R47.1 Dysarthria and anarthria; R29.810 Facial weakness; G81.94 Hemiplegia, unspecified affecting left nondominant side; R29.715 NIHSS score 15; I49.3 Ventricular premature depolarization; I45.81 Long QT syndrome; F17.200 Nicotine dependence, unspecified, uncomplicated
CPT/HCPCS: 36415; 70450; 70496; 70498; 80053; 83690; 83735; 85025; 85610; 85651; 85730; 93005; 96361; 96374; 96375; 99284; 99285; A9270; J1170; J7120; Q9967